=== PATIENT | male | born 1950 | race Caucasian/White ===

== ENCOUNTER 2017-09-04 10:37 | Observation (INO) | payer BC ==
[~2017-09-04] VITALS: Ht 185.4 cm; Wt 93.4 kg
[2017-09-04 11:08] LABS: BASOPHIL (%) 0.5 % (0-1); EOSINOPHIL (%) 0.7 % (0-5); EOSINOPHIL COUNT 0.1 K/uL (0-0.3); HEMATOCRIT 34.7 % (38.0-50.0); HEMOGLOBIN 12.4 G/DL (12.5-16.6); IMMATURE GRANULOCYTE (%) 0.4 % (0.0-0.7); LYMPHOCYTE (%) 15.3 % (15-42); LYMPHOCYTE COUNT 1.3 K/uL (1.0-2.8); MCH 29.7 PG (29.0-34.0); MCHC 35.7 G/DL (30.0-36.0); MCV 83.2 FL (86-99); MONOCYTE (%) 4.8 % (3-12); MONOCYTE COUNT 0.4 K/uL (0-0.8); NEUTROPHIL (%) 78.3 % (45-76); NEUTROPHIL COUNT 6.6 K/uL (1.8-6.4); PLATELET COUNT 182 K/uL (156-360); RBC DIS.WIDTH-SD 36.2 % (39-53); RED BLOOD COUNT 4.17 M/uL (4.00-5.50); WHITE BLOOD COUNT 8.4 K/uL (4.1-10.2)
[2017-09-04 11:18] LABS: ALBUMIN 4.2 g/dL (3.2-4.8); CHLORIDE 107 mEq/L (99-109); POTASSIUM 4.1 mEq/L (3.7-5.4); SODIUM 143 mEq/L (136-147)
[2017-09-04 11:20] LABS: GLUCOSE 99 mg/dL (70-99)
[2017-09-04 11:21] LABS: TOTAL PROTEIN 6.5 g/dL (6.4-8.3)
[2017-09-04 11:22] LABS: TOTAL BILIRUBIN 0.8 mg/dL (0.0-1.0)
[2017-09-04 11:24] LABS: ALKALINE PHOSPHATASE 44 IU/L (3-129); CREATININE 1.2 mg/dL (0.6-1.3); GFR ESTIMATE (CALCULATED) > 59 mL/min/ (58.99-99999)
[2017-09-04 11:25] LABS: UREA NITROGEN (BUN) 17 mg/dL (9-23)
[2017-09-04 11:26] LABS: AST (GOT) 23 IU/L (2-34)
[2017-09-04 11:27] LABS: ALT (GPT) 25 IU/L (3-49); TROP-I INTERPRETATION NEGATIVE; TROPONIN-I < 0.01 ng/mL (0.0-0.30)
[2017-09-04] MEDS ORDERED: HYDROCHLOROTHIA25 MG PO (11:48)
[2017-09-04] MEDS ORDERED: GLUCOPHAGE1000 MG PO (11:48)
[2017-09-04] MEDS ORDERED: PRINIVIL20 MG PO (11:48)
[2017-09-04] MEDS ORDERED: PRAVACHOL40 MG PO (11:49)
[2017-09-04] MEDS ORDERED: LANTUS 10100 UNITS/ SC (11:49)
[2017-09-04] MEDS ORDERED: LO-DOSE ASPIRIN81 M2 PO (11:49)
[2017-09-04 14:00] LABS: HDL CHOLESTEROL 33 MG/DL (Desirable>=40); LDL CHOLESTEROL 68 mg/dL (Desirable<100); NON-HDL CHOLESTEROL 86 mg/dL (Desirable<160); TOTAL CHOLESTEROL 119 mg/dL (Desirable<200); TRIGLYCERIDES 92 MG/DL (Normal: <150)
[2017-09-04 14:41] VITALS: BP 141/67
[2017-09-04 18:03] LABS: TROP-I INTERPRETATION NEGATIVE; TROPONIN-I 0.02 ng/mL (0.0-0.30)
[2017-09-04 23:53] VITALS: BP 136/71
[2017-09-05 01:26] LABS: TROP-I INTERPRETATION NEGATIVE; TROPONIN-I 0.01 ng/mL (0.0-0.30)
[2017-09-05 03:36] VITALS: BP 154/74
[2017-09-05 05:41] LABS: HEMATOCRIT 34.3 % (38.0-50.0); HEMOGLOBIN 11.7 G/DL (12.5-16.6); MCH 28.8 PG (29.0-34.0); MCHC 34.1 G/DL (30.0-36.0); MCV 84.5 FL (86-99); PLATELET COUNT 163 K/uL (156-360); RBC DIS.WIDTH-SD 36.5 % (39-53); RED BLOOD COUNT 4.06 M/uL (4.00-5.50); WHITE BLOOD COUNT 7.7 K/uL (4.1-10.2)
[2017-09-05 06:07] LABS: CHLORIDE 108 MEQ/L (99-109); CREATININE 1.1 MG/DL (0.6-1.3); GFR ESTIMATE (CALCULATED) > 59 mL/min/ (58.99-99999); GLUCOSE 88 mg/dL (70-99); POTASSIUM 4.2 MEQ/L (3.7-5.4); SODIUM 142 MEQ/L (136-147); UREA NITROGEN (BUN) 19 mg/dL (9-23)
[2017-09-05 07:37] VITALS: BP 152/82
[2017-09-05 10:50] LABS: HEMOGLOBIN A1c (GLYCOHEMOGLOB) 7.1 % (Below 5.7)
== END 2017-09-05 12:13 | disposition home or self-care (01) ==
LOC: EME 10:37 → EDOF 12:22 → 5WEST 12:22 → EDOF 12:22 → ENRESERV 12:24 → 5WEST 14:30
PROVIDERS: Emergency Medicine; Internal Medicine
DX: R07.9 Chest pain, unspecified (principal); R09.02 Hypoxemia; E10.9 Type 1 diabetes mellitus without complications; I10 Essential (primary) hypertension; E78.5 Hyperlipidemia, unspecified; E78.00 Pure hypercholesterolemia, unspecified; Z79.82 Long term (current) use of aspirin; Z79.4 Long term (current) use of insulin; I45.10 Unspecified right bundle-branch block; Z82.49 Family history of ischemic heart disease and other diseases of the circulatory system
CPT/HCPCS: 71046; 80048; 80053; 80061; 82948; 83036; 83880; 84484; 85025; 85027; 85379; 93005; 99281; 99285; G0378; J1650